=== PATIENT | female | born 1950 | race Caucasian/White ===

== ENCOUNTER 2023-10-05 11:08 | Observation (INO) ==
[2023-10-05] MEDS ORDERED: STAT IV Infusion **Titration per Protocol STA (11:24)
[2023-10-05] MEDS ORDERED: dilTIAZem HCl 5 MG/ML 5 ML VIAL IV STA (11:24)
[2023-10-05] MEDS ORDERED: dilTIAZem HCL 125 MG in DEXTROSE 5% 100 ML IV SCH (11:30)
[2023-10-05] MEDS ORDERED: METOPROLOL TARTRATE 1 MG/ML VIAL IV PRN (11:36)
[2023-10-05] MEDS ORDERED: METOPROLOL TARTRATE 1 MG/ML VIAL IV ONE (11:36)
--- NOTE | 2023-10-05 12:00 | XRay Report ---
SINGLE VIEW CHEST CLINICAL HISTORY: Atypical chest pain. FINDINGS: An AP, portable, upright chest radiograph is obtained. No prior studies are available for c omparison at the time of dictation. The heart is enlarged noting atherosclerotic calcification of the thoracic aorta. The pulmonary vasculature is noncongested. Chronic interstitial thickening is simila r previous. There is mild bibasilar scarring/atelectasis. The lungs and pleural spaces are otherwise clear. No pneumothorax is seen. The skeletal structures are osteopenic. The bony thorax is grossly in tact. IMPRESSION: Cardiomegaly with no active disease in the chest. ACT 112: Negative or not required by law. Electronically signed by: Rishi Kimbrough M.D. 10/05/2023 11:59 AM
[2023-10-05 12:07] LABS: Basophils # (auto) 0.04 K/uL (0.00-0.20); Basophils % (auto) 0.8 %; Eosinophils # (auto) 0.15 K/uL (0.00-0.50); Hematocrit (blood only) 45.2 % (37.0-47.0); Hemoglobin 14.4 g/dl (12.0-16.0); Immature Granulocytes # (auto) 0.02 K/uL (0.01-0.20); Immature Granulocytes % (auto) 0.4 %; Lymphocytes # (auto) 1.06 K/uL (1.20-3.40); Lymphocytes % (auto) 21.4 %; Mean Corpuscular Hgb Conc 31.9 g/dL (32.0-36.0); Mean Corpuscular Volume 97.4 fL (80.0-100.0); Mean Platelet Volume 10.9 fL (9.4-12.4); Monocytes # (auto) 0.48 K/uL (0.11-0.59); Monocytes % (auto) 9.7 %; Neutrophils % (auto) 64.7 %; Platelet Count 234 K/uL (130-400); RDW Coefficient of Variation 14.4 % (11.5-14.5); RDW Standard Deviation 51.5 fL (36.4-46.3); Red Blood Count 4.64 M/uL (4.20-5.40); White Blood Count 4.95 K/ul (4.8-10.8)
[2023-10-05 12:23] LABS: Albumin Globulin Ratio 1.3 (0.9-2); BUN Creatinine Ratio 13.6 (10-20); Bilirubin,Total 0.4 mg/dl (0.2-1.0); Creatinine Clr Calc Pharmacy 80.1 ml/min; Est GFR (Non-African American) 88.9 ml/min; Globulin 3.1 gm/dl (2.5-4.0); Potassium 3.6 mmol/L (3.5-5.1); Total Protein 7.1 gm/dl (6.0-8.3)
[2023-10-05 12:29] LABS: Troponin I High Sensitivity 15.3 pg/ml (0-14)
--- NOTE | 2023-10-05 12:33 | Emergency Department Note ---
Impression & Plan Atrial fibrillation with rapid ventricular response, Elevated troponin ED Provider Note NAME: MACARIO MASTERSON AGE: 72 SEX: F : 1950 ARRIVES VIA: Walk-In INFORMANT: Patient ED PROVIDER(S): Peter Lutz DO CHIEF COMPLAINT: palpitations HPI: Patient is a 72-year-old female who presents the ER with a past medical history of A-fib with RVR and 2 previous ablations. She has not had A-fib for over 3 years. She presents to the ER as her Apple Watch alerted her that her heart was racing. She denies any headache or change in vision. No chest pain or shortness of breath. No nausea vomiting or diarrhea. She notes she did have some trouble sleeping last night. No dysuria urgency or frequency. No other exacerbating or remitting factors. ADDITIONAL HISTORY OBTAINED: Per HPI Chronic Medical/Social Conditions Affecting Care: Per HPI PAST MEDICAL HISTORY:See Below PAST SURGICAL HISTORY:See Below FAMILY HISTORY:See Below SOCIAL HISTORY:See Below HOME MEDICATIONS:See Below ALLERGIES:See Below VITALS:See Below PHYSICAL EXAMINATION: GENERAL: Sitting up in bed, alert, well appearing, well nourished, no distress, non-toxic EYE EXAM: normal conjunctiva. OROPHARYNX: mucous membranes are moist NECK: supple, no nuchal rigidity, no adenopathy, non-tender LUNGS: Clear to auscultation. Normal chest wall mechanics HEART: Tachycardic and irregular regular, S1 normal and S2 normal ABDOMEN: abdomen soft, non-tender, normo-active bowel sounds, no masses, no rebound or guarding. UPPER EXTREMITIES: upper extremities are grossly normal. LOWER EXTREMITIES: No pitting edema. Calves are equal bilateral NEURO EXAM: Normal sensorium, cranial nerves II-XII grossly intact, normal speech, no gross weakness of arms, no gross weakness of legs. MEDICAL DECISION MAKING: Patient is a 72-year-old female who presents ER for above-stated complaint. IV was established blood work was obtained. Labs show no significant leukocytosis or anemia. INR was unremarkable. BMP along LFTs bilirubin was unremarkable as well. Troponin was slightly elevated at 15 I do favor this was rate related as her heart rate was in the 140s. She was given IV Lopressor. Chest x-ray was clean. EKG did show A-fib with RVR and subtle ST depressions with inferior T wave inversions. She was monitored closely. Asymptomatic. She has been taking her blood thinner. She has not missed any doses. She was updated bedside discussed with Alix Handy for further evaluation management treatment. Consults/Care Managements Discussions: Per [facility] Triage Nursing notes reviewed. Limited review of prior medical records performed Vital Signs: reviewed and remarkable for no significant abnormalities Differential diagnosis: Cardiac ischemia, aortic dissection, pulmonary embolism, pneumothorax, pneumonia, pericarditis, myocarditis, esophageal rupture, GERD, cholecystitis, pancreatitis, musculoskeletal, as well as other pathologies. ER treatment provided: See below Diagnostics interpreted by me include EKG and cardiac monitoring as listed below: -Cardiac Monitoring: An order was placed for continuous cardiac monitoring. The monitor shows a rate of 131 with A-fib with RVR rhythm. -ECG: A-fib with RVR Normal axis No PVCs QTc 460 -Laboratory studies:Interpreted by me as stated above in MDM and shown below. Imaging studies: Xrays: As interpreted by me: Portable AP upright 1 view of the chest shows no focal joint CTs show: none Procedures:none Critical Care: None Past Med/Surg History Social History Smoking Status: Never smoker Feels Safe at Home: Yes Results & Data (ED) Vital Signs Vital Signs - 24 hr 10/05/23 11:10 10/05/23 11:16 10/05/23 11:31 Temperature 36.9 C Temperature Source Temporal Artery Scan Pulse Rate 130 H 116 H Pulse Rate from SpO2 Sensor 113 H Respiratory Rate 18 14 Respiratory Effort / Characteristics Non-Labored Spontaneous Respiratory Depth Normal Respiratory Pattern Regular Blood Pressure 155/94 H 136/113 H Blood Pressure Mean 114 120 Blood Pressure Position Sitting Pulse Oximetry 94 98 Oxygen Delivery Method Room Air Room Air Room Air Sepsis Recent Fever Within 48 Hours No Sepsis New/Unexplained Change in Mental Status N/A Sepsis Action Taken by Nursing No Action Required 10/05/23 11:34 10/05/23 11:38 10/05/23 11:38 Temperature Temperature Source Pulse Rate 139 H 105 H Pulse Rate from SpO2 Sensor Respiratory Rate Respiratory Effort / Characteristics Respiratory Depth Respiratory Pattern Blood Pressure 136/113 H Blood Pressure Mean Blood Pressure Position Pulse Oximetry Oxygen Delivery Method Room Air Sepsis Recent Fever Within 48 Hours Sepsis New/Unexplained Change in Mental Status Sepsis Action Taken by Nursing 10/05/23 11:48 10/05/23 12:00 10/05/23 12:16 Temperature Temperature Source Pulse Rate 101 H 109 H 94 H Pulse Rate from SpO2 Sensor 81 107 H 85 Respiratory Rate 18 14 17 Respiratory Effort / Characteristics Respiratory Depth Respiratory Pattern Blood Pressure 131/94 128/86 113/79 Blood Pressure Mean 106 100 90 Blood Pressure Position Pulse Oximetry 100 96 96 Oxygen Delivery Method Sepsis Recent Fever Within 48 Hours Sepsis New/Unexplained Change in Mental Status Sepsis Action Taken by Nursing Laboratory Data 10/05/23 11:26 10/05/23 11:26 Lab Results 10/05/23 Range/Units 11:26 WBC 4.95 (4.8-10.8) K/ul RBC 4.64 (4.20-5.40) M/uL Hgb 14.4 (12.0-16.0) g/dl Hct 45.2 (37.0-47.0) % MCV 97.4 (80.0-100.0) fL MCH 31.0 (25.0-34.0) pg MCHC 31.9 L (32.0-36.0) g/dL RDW Std Deviation 51.5 H (36.4-46.3) fL RDW Coeff of [place] 14.4 (11.5-14.5) % Plt Count 234 (130-400) K/uL MPV 10.9 (9.4-12.4) fL Immature Gran % (Auto) 0.4 % Neut % (Auto) 64.7 % Lymph % (Auto) 21.4 % Mcminn % (Auto) 9.7 % Eos % (Auto) 3.0 % Baso % (Auto) 0.8 % Neut # (Auto) 3.20 (1.40-6.50) K/uL Lymph # (Auto) 1.06 L (1.20-3.40) K/uL Mcminn # (Auto) 0.48 (0.11-0.59) K/uL Eos # (Auto) 0.15 (0.00-0.50) K/uL Baso # (Auto) 0.04 (0.00-0.20) K/uL Immature Gran # (Auto) 0.02 (0.01-0.20) K/uL Sodium 139 (136-145) mmol/L Potassium 3.6 (3.5-5.1) mmol/L Chloride 103 (98-107) mmol/L Carbon Dioxide 31 (21-32) mmol/L Anion Gap 5 (3-11) BUN 9 (6-23) mg/dl Creatinine 0.66 (0.6-1.2) mg/dl Est Cr Clr Drug Dosing 80.1 ml/min Est GFR ( Amer) 103.0 ml/min Est GFR (Non-Af Amer) 88.9 ml/min BUN/Creatinine Ratio 13.6 (10-20) Glucose 87 (70-99(Fasting)) mg/dl Calcium 9.0 (8.6-10.3) mg/dl Total Bilirubin 0.4 (0.2-1.0) mg/dl AST 17 (13-39) U/L ALT 13 (7-52) U/L Alkaline Phosphatase 97 (34-104) U/L Troponin I High Sens 15.3 H (0-14) pg/ml Total Protein 7.1 (6.0-8.3) gm/dl Albumin 4.0 (3.4-5.0) gm/dl Globulin 3.1 (2.5-4.0) gm/dl Albumin/Globulin Ratio 1.3 (0.9-2) Administered Medications Metoprolol Tartrate (Metoprolol Tartrate 1 Mg/Ml Vial) 5 mg IV Q5M PRN PRN Reason: Tachycardia Stop: 11/04/23 11:35 Last Admin: 10/05/23 11:38 Dose: 5 mg Documented By: JAS Discontinued Medications Diltiazem HCl (Diltiazem Hcl 5 Mg/Ml 5 Ml Vial) 10 mg IV NOW STA Stop: 10/05/23 11:25 Last Admin: 10/05/23 11:40 Dose: Not Given Documented By: JAS Diltiazem HCl 125 mg/ Dextrose 125 mls @ 5 mls/hr IV .Q24H [facility]; Protocol Stop: 11/04/23 11:29 Last Admin: 10/05/23 11:40 Dose: Not Given Documented By: JAS Metoprolol Tartrate (Metoprolol Tartrate 1 Mg/Ml Vial) Confirm Administered Dose 5 mg IV .STK-MED ONE Stop: 10/05/23 11:37 Last Admin: 10/05/23 11:39 Dose: Not Given Documented By: JAS Imaging Data Radiologist's Impression: Chest X-Ray 10/05/23 11:16 SINGLE VIEW CHEST CLINICAL HISTORY: Atypical chest pain. FINDINGS: An AP, portable, upright chest radiograph is obtained. No prior studies are available for comparison at the time of dictation. The heart is enlarged noting atherosclerotic calcification of the thoracic aorta. The pulmonary vasculature is noncongested. Chronic interstitial thickening is similar previous. There is mild bibasilar scarring/atelectasis. The lungs and pleural spaces are otherwise clear. No pneumothorax is seen. The skeletal structures are osteopenic. The bony thorax is grossly intact. IMPRESSION: Cardiomegaly with no active disease in the chest. ACT 112: Negative or not required by law. Electronically signed by: Rishi Kimbrough M.D. 10/05/2023 11:59 AM Discharge Plan Visit Data Chief Complaint: Cardiac Assessment Stated Complaint: POSS AFIB ED Provider: Peter Lutz Discharge Problem: Atrial fibrillation with rapid ventricular response, Elevated troponin Forms Stand Alone Forms: [facility] Referrals Referrals: PCP,NO [Primary Care Provider] -
[2023-10-05 12:34] LABS: Partial Thromboplastin Time 29 Seconds (21-31); Prothrombin Time 11.2 Seconds (9.0-12.0)
[2023-10-05] MEDS ORDERED: ACETAMINOPHEN 325 MG TAB PO PRN (13:14)
[2023-10-05] MEDS ORDERED: METOPROLOL SUCC 25MG EXT REL TAB PO SCH (13:30)
[2023-10-05] MEDS: METOPROLOL TARTRATE 25 MG TAB PO SCH ×2 (14:06→19:33)
--- NOTE | 2023-10-05 14:23 | History & Physical Report ---
Date of Service October 05, 2023 Assessment & Plan (1) Atrial fibrillation with rapid ventricular response: Plan: Admit to telemetry Patient presenting from home for evaluation of atrial fibrillation. States that around 8 AM, her Apple Watch alerted her that she was in atrial fibrillation. She was asymptomatic. Patient reports an incidental finding of atrial fibrillation in 2019 as part of a preop workup for shoulder surgery. Patient states that she underwent cardioversion twice that was unsuccessful, ultimately leading to ablation in February 2020. In October 2020, patient underwent an additional ablation. Patient reports no known recurrences of atrial fibrillation since that time. In the ED, patient found to be in atrial fibrillation with rates in the 130s. She received metoprolol 5 mg IV with improvement in heart rate. Patient reports a intolerance to diltiazem, causing profound bradycardia in the past. Currently not on any rhythm or rate controlling medications. No signs of infection, electrolytes acceptable, TSH pending Start metoprolol tartrate 12.5 mg q6h, continue home Xarelto Echo Cardiology consult, case discussed with Dr. Pepper. (2) History of DVT (deep vein thrombosis): Plan: Continue Xarelto (3) Postsurgical hypothyroidism: Plan: Continue home dose levothyroxine Check TSH DVT PROPHYLAXIS On Xarelto Patient seen in collaboration with Dr. Arteaga. I spent a total of 75 minutes coordinating, documenting, and providing care for this patient excluding time spent in the performance of separately billed services. This included personally reviewing all current laboratories and imaging studies, medication reconciliation, outpatient chart review, and discussion with specialists. Admission and Anticipated Discharge Date Admission Date: October 05, 2023 History of Present Illness Chief Complaint: Atrial fibrillation Primary Care Provider: NO PCP 72-year-old female with PMH paroxysmal atrial fibrillation s/p cardioversion and ablation, history of DVT anticoagulated on Xarelto, partial thyroidectomy and postsurgical hypothyroidism, and other problems listed below who presents to the ED for evaluation of atrial fibrillation. History is obtained from the patient. Patient recently moved to the area from [place]. She has not established with a PCP or cardiology. Patient reports an incidental finding of atrial fibrillation in 2018 as part of a preop workup for shoulder surgery. Patient states that she underwent cardioversion twice that was unsuccessful, ultimately leading to ablation in February 2020. In October 2020, patient underwent an additional ablation. Patient reports no known recurrences of atrial fibrillation since that time. This morning around 8 AM, patient reports that her Apple Watch alerted her that she was in atrial fibrillation. She then presented to the ED for further evaluation. Patient reports she was asymptomatic. She denies chest pain and palpitations. No shortness of breath, lightheadedness, dizziness, diaphoresis, syncopal events. Reports she otherwise has been feeling well recently. Denies any other recent illnesses, fevers, chills. No abdominal pain, nausea, vomiting, diarrhea. She denies urinary symptoms. Of note, patient is not currently on any rhythm or rate controlling medications for atrial fibrillation. In the ED, patient was found to be in atrial fibrillation with RVR with rates in the 130s. She received metoprolol 5 mg IV with improvement in heart rate. Labs are unremarkable. Home Medications Medication Instructions Recorded Confirmed Type Biactiv 3 tabs PO DAILY 10/05/23 10/05/23 History cetirizine 10 mg capsule (Zyrtec) 10 mg PO DAILY 10/05/23 10/05/23 History cholecalciferol (vitamin D3) 25 25 mcg PO DAILY 10/05/23 10/05/23 History mcg (1,000 unit) capsule glucosamine sulf dipot 1 cap PO DAILY 10/05/23 10/05/23 History chlr,msm,chond 550 mg-C 30 mg-carlos 1 mg capsule (Glucosamine Chondroitin) krill oil 1,000 mg-om3 130 mg-dha 1 cap PO DAILY 10/05/23 10/05/23 History 40 mg-epa 80 zv-og4-crw-astax cap (Krill Oil (Washta 3 and 6)) levothyroxine 88 mcg tablet 88 mcg PO DAILY 10/05/23 10/05/23 History rivaroxaban 20 mg tablet (Xarelto) 20 mg PO DAILY 10/05/23 10/05/23 History trazodone 50 mg tablet 50 mg PO HS 10/05/23 10/05/23 History vitamins A,C,T-bpvt-hsvbbh 2,148 1 tab PO DAILY 10/05/23 10/05/23 History mcg-113 mg-45 mg-17.4 mg tablet (PreserVision AREDS) Past Med/Surg History Medical History History of DVT (deep vein thrombosis) Postsurgical hypothyroidism Paroxysmal atrial fibrillation Surgical History History of rotator cuff surgery History of partial thyroidectomy Family History Father Atrial fibrillation Mother Atrial fibrillation Social History Smoking Status: Never smoker Hx Alcohol Use: Yes Alcohol type: wine Hx Substance Use: No Communication Ability: Effective Beliefs That Will Affect Care: None Current Living Situation: Spouse Feels Safe at Home: Yes Safety Concerns: Feels Safe At This Time Physical Exam Constitutional: WD/WN, vitals as above no acute distress Eyes: PERRL, conjunctivae normal, anicteric sclerae ENMT: external ear and nose normal, oropharynx normal Respiratory: normal respiratory effort, lungs clear to auscultation Cardiovascular: Rate/Rhythm: regular rate and + irregularly irregular Vessels: normal peripheral pulses Extremities: no edema Gastrointestinal (Abdomen): normal bowel sounds, soft, nontender, no hepatosplenomegaly Musculoskeletal: no cyanosis or clubbing, extremities motor strength 5/5 Skin: no rashes, warm and dry Neurologic: PERRL, EOMI, accommodation nl, no face palsy, no dysarthria Psychiatric: A+Ox3, euthymic affect Results & Data Results & Data Vital Signs (Past 12 Hours) Vital Signs Temp Pulse Resp BP Pulse Ox O2 Del Method 10/05/23 13:24 86 119/89 10/05/23 13:14 Room Air 10/05/23 12:16 94 H 17 113/79 96 10/05/23 12:00 109 H 14 128/86 96 10/05/23 11:48 101 H 18 131/94 100 10/05/23 11:38 105 H 136/113 H 10/05/23 11:38 Room Air 10/05/23 11:34 139 H 10/05/23 11:31 116 H 14 136/113 H 98 Room Air 10/05/23 11:16 Room Air 10/05/23 11:10 36.9 C 130 H 18 155/94 H 94 Room Air Laboratory Results Short CBC 10/05/23 Range/Units 11:26 WBC 4.95 (4.8-10.8) K/ul Hgb 14.4 (12.0-16.0) g/dl Hct 45.2 (37.0-47.0) % Plt Count 234 (130-400) K/uL BMP 10/05/23 11:26 Sodium 139 Potassium 3.6 Chloride 103 Carbon Dioxide 31 BUN 9 Creatinine 0.66 Glucose 87 Calcium 9.0 Liver Function 10/05/23 Range/Units 11:26 Total Bilirubin 0.4 (0.2-1.0) mg/dl AST 17 (13-39) U/L ALT 13 (7-52) U/L Alkaline Phosphatase 97 (34-104) U/L Albumin 4.0 (3.4-5.0) gm/dl Diagnostic Findings Chest X-Ray 10/05/23 11:16 SINGLE VIEW CHEST CLINICAL HISTORY: Atypical chest pain. FINDINGS: An AP, portable, upright chest radiograph is obtained. No prior studies are available for comparison at the time of dictation. The heart is enlarged noting atherosclerotic calcification of the thoracic aorta. The pulmonary vasculature is noncongested. Chronic interstitial thickening is similar previous. There is mild bibasilar scarring/atelectasis. The lungs and pleural spaces are otherwise clear. No pneumothorax is seen. The skeletal structures are osteopenic. The bony thorax is grossly intact. IMPRESSION: Cardiomegaly with no active disease in the chest. ACT 112: Negative or not required by law. Electronically signed by: Rishi Kimbrough M.D. 10/05/2023 11:59 AM Code Status & VTE Plan VTE Prophylaxis Plan VTE Prophylaxis will be ordered: No Supervising Physician Co-Signing Physician Notes Reviewed [employer] INSPECTOR notes, patient is being followed for cardiac care in [place] and recently moved here. She is scheduled to have a cardiology for follow-up in October. Will get a cardiology follow-up while in hospital. Reviewed [id number] score Will get a TSH study.
[2023-10-05 15:13] LABS: Thyroid Stimulating Hormone 0.971 uIu/ml (0.300-4.500)
--- NOTE | 2023-10-05 15:16 | Electrocardiogram Report ---
Test Reason : Blood Pressure : / mmHG Vent. Rate : 129 BPM Atrial Rate : 000 BPM P-R Int : 000 ms QRS Dur : 078 ms QT Int : 314 ms P-R-T Axes : 000 110 -29 degrees QTc Int : 460 ms Atrial fibrillation with rapid ventricular response Right axis deviation Abnormal ECG No previous ECGs available Confirmed by Dwight Mendez ([id number]) on 10/05/2023 3:15:53 PM Referred By: REFERRED SELF Confirmed By:Dwight Mendez
--- NOTE | 2023-10-05 15:31 | Cardiology Consultation ---
Date of Consultation October 05, 2023 Assessment & Plan (1) Atrial fibrillation with rapid ventricular response: (2) Elevated troponin: (3) History of DVT (deep vein thrombosis): Plan Assessment: 72 year old female with history of Atrial fibrillation s/p multiple cardioversions as well as 2 subsequent ablations, last dating back to 2020, presents with asymptomatic atrial fibrillation with RVR. Plan: 1. Atrial fibrillation with RVR -Currently A-fib on telemetry rates 90-109, asympotmatic. -No recent acute infectious process. -No concerns of dehydration or poor oral intake -Electrolytes normal. -Troponin with slight elevation, in the absence of acute ischemic EKG changes, likely tachycardia driven -check TSH given her thyroid history -Obtain echocardiogram to assess overall structure, function and for any wall motion abnormalities. -Reports poor tolerance of Cardizem in the past, continue with Metoprolol Tartrate 12.5mg PO Q6H as per current regimen. -Continue Xarelto as per her home regimen. Reports no missed doses. - Will make NPO after midnight for consideration of possible DCCV tomorrow. Will discuss with Dr. Pepper 2. Elevated Troponin -slight elevation, monitor for peak. -EKG with no acute ischemic changes, likely tachycardia mediated. -Obtain echocardiogram. 3. History of DVT -Patient reports that this occurred around the time of her . She has opted to stay on her Xarelto, and has not missed any doses. Case has been discussed with Dr. Pepper. Further recommendations regarding plan of care as per his assessment. I spent a total of 30 minutes on the date of service in preparation, delivery, documentation of the care provided to the patient excluding any time spent in the performance of separately billed services. FAVIO [facility] Cardiology [facility] Supervising Physician Co-Signing Physician Notes Attending attestation: I have reviewed the advanced practitioner's documentation on the date of service referenced in note, and I agree with, and take responsibility for the plan of care. Subjective: Patient assessed by the undersigned in room C6 in the emergency department at 5 PM. She notes feeling comfortable. Telemetry reveals rate controlled atrial fibrillation in the 70s to 80s during my assessment. She notes no subjective palpitation symptoms, denies chest pain, shortness of breath, or lightheadedness or dizziness. She wears her Apple Watch daily, but today it gave her an alert that she was in atrial fibrillation prompting presentation to the emergency department. 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 She describes having had a past negative stress test at around the time of her previous atrial fibrillation ablation. She recalls being on metoprolol in the past and had been on a course of amiodarone after each of her ablations and she believes that she was weaned off of amiodarone 3 months after her most recent ablation. Exam: Cardiovascular regular rhythm, no murmurs, no edema Data: EKG performed 10/05/2023 at 11:21 AM and reviewed independently reveals atrial fibrillation with rapid ventricular response 129 bpm, T wave inversion noted in leads III and aVF. No previous tracing available for comparison Echocardiogram performed today and reviewed independently: Normal biventricular wall motion and systolic function, LVEF in the range of 55-60%. Mild MR. Mild TR. Mild left atrial lodgment. No evidence of pulmonary hypertension Mild concentric left ventricular hypertrophy Impression/ Plan: Recurrent atrial fibrillation Chronically anticoagulated Xarelto, typically takes Xarelto with her evening meal, last dose was last evening at 6 PM, will keep her on her usual schedule. Agree with plan to start metoprolol tartrate 12.6 mg p.o. every 6 hours. Future considerations include utilizing amiodarone for chemical cardioversion however I think it is reasonable to start with metoprolol as her rates are already well- controlled. She had lunch and I think it is okay for her to have dinner. Will keep her n.p.o. after midnight in case need arises for cardioversion tomorrow. I spent a total of 20 minutes coordinating, documenting, and providing care for this patient excluding time spent in the performance of separately billed services or time spent by another provider. Gustavo Pepper DO History of Present Illness Reason for Consultation: Atrial fibrillation with RVR Requesting Physician: Meaghan Shaw Attending Physician: Felton Arteaga MD History of Present Illness HPI: patient is a very plesant 72 year-old female with PMHx significant for Paroxysmal Atrial fibrillation (7 prior cardioversions, 2 Afib ablations 2019 and 2020), hx of DVT after , partial thyroidectomy, and post surgical hypothyroidism that presented to the ED this morning with concerns that she was in A-fib. patient states that she has been feeling her usual state of health. 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 She has had no recent cold or flu like symtoms. No fevers, chills, No N/V/D and no decrease in appetite or oral intake. She was up doing her normal ADLs when her apple watch alarmed telling her that she was in A-fib prompting her to present for evaluation. She has remained asymptomatic. Patient has not seen a psych tech since her move to [place], but is scheduled to see Dr. Washburn to establish care. She states she has had no episodes of A-fib that she is aware of since her Ablation in 2020. patient last saw her psych tech in fall (in [place]) with a "good report". She remains on Xarelto with no missed doses. EKG on admission A-fib with RVR rate 129 bpm. Denies chest pain, pressure, palpitations, shortness of breath, PND, pre- syncope, syncope or edema Home Medications Medication Instructions Recorded Confirmed Type Biactiv 3 tabs PO DAILY 10/05/23 10/05/23 History cetirizine 10 mg capsule (Zyrtec) 10 mg PO DAILY 10/05/23 10/05/23 History cholecalciferol (vitamin D3) 25 25 mcg PO DAILY 10/05/23 10/05/23 History mcg (1,000 unit) capsule glucosamine sulf dipot 1 cap PO DAILY 10/05/23 10/05/23 History chlr,msm,chond 550 mg-C 30 mg-carlos 1 mg capsule (Glucosamine Chondroitin) krill oil 1,000 mg-om3 130 mg-dha 1 cap PO DAILY 10/05/23 10/05/23 History 40 mg-epa 80 nb-vz5-zvg-astax cap (Krill Oil (Redford 3 and 6)) levothyroxine 88 mcg tablet 88 mcg PO DAILY 10/05/23 10/05/23 History rivaroxaban 20 mg tablet (Xarelto) 20 mg PO DAILY 10/05/23 10/05/23 History vitamins A,C,K-wqaf-yxgtea 2,148 1 tab PO DAILY 10/05/23 10/05/23 History mcg-113 mg-45 mg-17.4 mg tablet (PreserVision AREDS) Patient History Medical History History of DVT (deep vein thrombosis) Postsurgical hypothyroidism Paroxysmal atrial fibrillation Surgical History History of rotator cuff surgery History of partial thyroidectomy Family History Father Atrial fibrillation Mother Atrial fibrillation Social History Smoking Status: Never smoker Hx Alcohol Use: Yes Alcohol type: wine Hx Substance Use: No Communication Ability: Effective Beliefs That Will Affect Care: None Current Living Situation: Spouse Feels Safe at Home: Yes Safety Concerns: Feels Safe At This Time Review of Systems Review of Systems: All systems reviewed & are unremarkable except as noted in HPI & below Physical Exam Constitutional: WD/WN, vitals as above Neck: normal visual inspection and trachea midline Respiratory: normal respiratory effort, lungs clear to auscultation Cardiovascular: Rate/Rhythm: + irregularly irregular Heart Sounds: normal S1 and normal S2; no murmur Vessels: dorsalis pedis pulses present; no JVD Extremities: no edema Skin: no rashes, warm and dry Psychiatric: A+Ox3, euthymic affect Results & Data Vital Signs (Past 12 Hours) Vital Signs Temp Pulse Resp BP Pulse Ox O2 Del Method 10/05/23 14:09 Room Air 10/05/23 13:24 86 119/89 10/05/23 13:14 Room Air 10/05/23 12:16 94 H 17 113/79 96 10/05/23 12:00 109 H 14 128/86 96 10/05/23 11:48 101 H 18 131/94 100 10/05/23 11:38 105 H 136/113 H 10/05/23 11:38 Room Air 10/05/23 11:34 139 H 10/05/23 11:31 116 H 14 136/113 H 98 Room Air 10/05/23 11:16 Room Air 10/05/23 11:10 36.9 C 130 H 18 155/94 H 94 Room Air Laboratory Results Cardiac Enzymes 10/05/23 Range/Units 11:26 AST 17 (13-39) U/L Troponin I High Sens 15.3 H (0-14) pg/ml Coagulation 10/05/23 Range/Units 11:26 PT 11.2 (9.0-12.0) Seconds APTT 29 (21-31) Seconds CBC 10/05/23 Range/Units 11:26 WBC 4.95 (4.8-10.8) K/ul RBC 4.64 (4.20-5.40) M/uL Hgb 14.4 (12.0-16.0) g/dl Hct 45.2 (37.0-47.0) % Plt Count 234 (130-400) K/uL Neut # (Auto) 3.20 (1.40-6.50) K/uL Lymph # (Auto) 1.06 L (1.20-3.40) K/uL [place] # (Auto) 0.48 (0.11-0.59) K/uL Eos # (Auto) 0.15 (0.00-0.50) K/uL Baso # (Auto) 0.04 (0.00-0.20) K/uL Comprehensive Metabolic Panel 10/05/23 Range/Units 11:26 Sodium 139 (136-145) mmol/L Potassium 3.6 (3.5-5.1) mmol/L Chloride 103 (98-107) mmol/L Carbon Dioxide 31 (21-32) mmol/L BUN 9 (6-23) mg/dl Creatinine 0.66 (0.6-1.2) mg/dl Glucose 87 (70-99(Fasting)) mg/dl Calcium 9.0 (8.6-10.3) mg/dl AST 17 (13-39) U/L ALT 13 (7-52) U/L Alkaline Phosphatase 97 (34-104) U/L Total Protein 7.1 (6.0-8.3) gm/dl Albumin 4.0 (3.4-5.0) gm/dl Intake and Output 10/05/23 10/05/23 10/05/23 06:59 14:59 22:59 Other: Weight 76.7 kg Weight Measurement Method Chair Scale Patient Weight 10/06/23 06:59 Weight 76.7 kg Diagnostic Findings EKG today A-fib with RVR Rate 129bpm
[2023-10-05] MEDS ORDERED: RIVAROXABAN 20 MG TAB PO SCH (17:30)
[2023-10-05] MEDS ORDERED: traZODone HCL 50 MG TAB PO SCH (21:00)
[2023-10-06] MEDS ORDERED: Patient's ALLERGY Info needs ENTERED STA (02:44)
[2023-10-06] MEDS ORDERED: SODIUM CHLORIDE 0.9% 500 ML IV SCH (02:45)
[2023-10-06] MEDS: METOPROLOL TARTRATE 25 MG TAB PO SCH ×2 (03:10→08:12)
[2023-10-06] MEDS ORDERED: LEVOTHYROXINE SODIUM 88 MCG TABLET PO SCH (06:30)
[2023-10-06 06:49] LABS: Hematocrit (blood only) 39.7 % (37.0-47.0); Hemoglobin 13.3 g/dl (12.0-16.0); Mean Corpuscular Hgb Conc 33.5 g/dL (32.0-36.0); Mean Corpuscular Volume 95.4 fL (80.0-100.0); Mean Platelet Volume 11.1 fL (9.4-12.4); Platelet Count 213 K/uL (130-400); RDW Coefficient of Variation 14.5 % (11.5-14.5); RDW Standard Deviation 50.7 fL (36.4-46.3); Red Blood Count 4.16 M/uL (4.20-5.40); White Blood Count 4.52 K/ul (4.8-10.8)
[2023-10-06 07:11] LABS: BUN Creatinine Ratio 20.9 (10-20); Calcium 8.7 mg/dl (8.6-10.3); Creatinine Clr Calc Pharmacy 78.9 ml/min; Est GFR (African American) 102.5 ml/min; Est GFR (Non-African American) 88.4 ml/min; Potassium 4.2 mmol/L (3.5-5.1)
[2023-10-06] MEDS ORDERED: RIVAROXABAN 20 MG TAB PO SCH (09:00)
[2023-10-06] MEDS ORDERED: CETIRIZINE HCL 10 MG TABLET PO SCH (09:00)
[2023-10-06] MEDS ORDERED: CHOLECALCIFEROL 25 MCG (1000 UNITS) TAB PO SCH (09:00)
--- NOTE | 2023-10-06 09:59 | Cardiology Progress Note ---
Date of Service October 06, 2023 Assessment & Plan (1) Atrial fibrillation with rapid ventricular response: (2) Elevated troponin: (3) History of DVT (deep vein thrombosis): Plan Assessment: 72 year old female with history of Atrial fibrillation s/p multiple cardioversions as well as 2 subsequent ablations, last dating back to 2020, presents with asymptomatic atrial fibrillation with RVR. Plan: Patient presents with recurrent atrial fibrillation. She is noted to be min imally symptomatic to asymptomatic, and having detected atrial fibrillation yesterday in the morning when she was wearing her Apple Watch which she typically wears daily but not when she sleeps. She has a history of atrial fibrillation in the past for which she has had 7 prior direct-current cardioversions per her recollection and has had ablation therapy x 2. She has been on uninterrupted anticoagulation with Xarelto 20 mg daily and she received her dose with her evening meal yesterday at 1800 as per her usual routine. Informed consent for direct-current cardioversion was obtained and patient elects to proceed. Admission and Anticipated Discharge Date Admission Date: October 05, 2023 Subjective Patient seen in follow-up of atrial fibrillation. Telemetry reveals ongoing atrial fibrillation, ventricular rate 114 bpm while resting in bed at present. Telemetry reveals atrial fibrillation that persisted last night. EKG this morning reveals atrial fibrillation at 84 bpm with nonspecific repolarization abnormalities and 1 noted PVC. Physical Exam Constitutional: WD/WN, vitals as above Neck: normal visual inspection and trachea midline Respiratory: normal respiratory effort, lungs clear to auscultation Cardiovascular: Rate/Rhythm: + irregularly irregular Heart Sounds: normal S1 and normal S2; no murmur Vessels: dorsalis pedis pulses present; no JVD Extremities: no edema Skin: no rashes, warm and dry Psychiatric: A+Ox3, euthymic affect Results & Data Vital Signs (Past 12 Hours) Vital Signs Temp Pulse Pulse Resp BP BP Pulse Ox 10/06/23 09:55 99 H 10/06/23 07:33 36.5 C 126 H 18 95/65 L 96 10/06/23 03:45 100/66 10/06/23 02:31 36.4 C L 103 H 15 86/55 L 94 10/05/23 23:01 36.4 C L 79 20 90/58 L 93 10/05/23 22:17 36.5 C 102 H 16 127/88 94 O2 Del Method 10/06/23 09:55 10/06/23 07:33 Room Air 10/06/23 03:45 10/06/23 02:31 Room Air 10/05/23 23:01 Room Air 10/05/23 22:17 Room Air Laboratory Results Cardiac Enzymes 10/05/23 10/05/23 10/06/23 Range/Units 11:26 17:40 00:39 AST 17 (13-39) U/L Troponin I High Sens 15.3 H 12.0 10.7 (0-14) pg/ml Coagulation 10/05/23 Range/Units 11:26 PT 11.2 (9.0-12.0) Seconds APTT 29 (21-31) Seconds CBC 10/05/23 10/06/23 Range/Units 11:26 05:46 WBC 4.95 4.52 L (4.8-10.8) K/ul RBC 4.64 4.16 L (4.20-5.40) M/uL Hgb 14.4 13.3 (12.0-16.0) g/dl Hct 45.2 39.7 (37.0-47.0) % Plt Count 234 213 (130-400) K/uL Neut # (Auto) 3.20 (1.40-6.50) K/uL Lymph # (Auto) 1.06 L (1.20-3.40) K/uL [place] # (Auto) 0.48 (0.11-0.59) K/uL Eos # (Auto) 0.15 (0.00-0.50) K/uL Baso # (Auto) 0.04 (0.00-0.20) K/uL Comprehensive Metabolic Panel 10/05/23 10/06/23 Range/Units 11:26 05:46 Sodium 139 141 (136-145) mmol/L Potassium 3.6 4.2 (3.5-5.1) mmol/L Chloride 103 109 H (98-107) mmol/L Carbon Dioxide 31 28 (21-32) mmol/L BUN 9 14 (6-23) mg/dl Creatinine 0.66 0.67 (0.6-1.2) mg/dl Glucose 87 92 (70-99(Fasting)) mg/dl Calcium 9.0 8.7 (8.6-10.3) mg/dl AST 17 (13-39) U/L ALT 13 (7-52) U/L Alkaline Phosphatase 97 (34-104) U/L Total Protein 7.1 (6.0-8.3) gm/dl Albumin 4.0 (3.4-5.0) gm/dl Intake and Output 10/05/23 10/06/23 10/06/23 22:59 06:59 14:59 Intake Total 120 / 620 500 / 620 Balance 120 / 620 500 / 620 Intake: IV 500 / 500 Sodium Chloride 0.9% 500 ml @ 500 / 500 500 mls/hr IV .Q1H [facility] Rx#: [id number] Oral 120 / 120 Other: Other Intake Source Patient is NPO # Unmeasured Voids 1 Weight 76.7 kg Weight Measurement Method Built in [facility]
--- NOTE | 2023-10-06 10:09 | Anesthesiology Consultation ---
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 Room w/Anesthesia - Gustavo Pepper DO Height/Weight Height: 5 ft 5 in Weight: 76.7 kg Allergies Allergy/AdvReac Type Severity Reaction Status Date / Time acetaminophen [From Percocet] Allergy Unknown Verified 10/06/23 02:53 oxycodone [From Percocet] Allergy Unknown Verified 10/06/23 02:53 diltiazem [From Cardizem] AdvReac Hypotension Verified 10/06/23 02:53 Medications Home Medications Medication Instructions Recorded Confirmed Last Taken Biactiv 3 tabs PO DAILY 10/05/23 10/05/23 Unknown cetirizine 10 mg capsule (Zyrtec) 10 mg PO DAILY 10/05/23 10/05/23 Unknown cholecalciferol (vitamin D3) 25 25 mcg PO DAILY 10/05/23 10/05/23 Unknown mcg (1,000 unit) capsule glucosamine sulf dipot 1 cap PO DAILY 10/05/23 10/05/23 Unknown chlr,msm,chond 550 mg-C 30 mg-carlos 1 mg capsule (Glucosamine Chondroitin) krill oil 1,000 mg-om3 130 mg-dha 1 cap PO DAILY 10/05/23 10/05/23 Unknown 40 mg-epa 80 gv-dx5-ydm-astax cap (Krill Oil (Erin 3 and 6)) levothyroxine 88 mcg tablet 88 mcg PO DAILY 10/05/23 10/05/23 Unknown rivaroxaban 20 mg tablet (Xarelto) 20 mg PO DAILY 10/05/23 10/05/23 Unknown trazodone 50 mg tablet 50 mg PO HS 10/05/23 10/05/23 10/04/23 50 vitamins A,C,G-keom-tdgxxa 2,148 1 tab PO DAILY 10/05/23 10/05/23 Unknown mcg-113 mg-45 mg-17.4 mg tablet (PreserVision AREDS) Active Medications Generic Name Dose Route Start Last Admin Trade Name Freq PRN Reason Stop Dose Admin Cetirizine HCl 10 mg 10/06/23 09:00 10/06/23 08:16 Cetirizine Hcl 10 Mg Tablet PO 11/05/23 08:59 10 mg DAILY DUKE Administration Levothyroxine Sodium 88 mcg 10/06/23 06:30 10/06/23 05:48 Levothyroxine Sodium 88 Mcg Tablet PO 11/05/23 06:29 88 mcg DAILYBB DUKE Administration Metoprolol Tartrate 12.5 mg 10/05/23 14:00 10/06/23 08:12 Metoprolol Tartrate 25 Mg Tab PO 11/04/23 13:59 12.5 mg Q6H DUKE Administration Rivaroxaban 20 mg 10/05/23 17:30 10/05/23 18:05 Rivaroxaban 20 Mg Tab PO 11/04/23 17:29 20 mg DAILY@1700 DUKE Administration Trazodone HCl 50 mg 10/05/23 21:00 10/05/23 22:23 Trazodone Hcl 50 Mg Tab PO 11/04/23 20:59 50 mg HS DUKE Administration Vitamin D 1,000 units 10/06/23 09:00 10/06/23 08:16 Cholecalciferol 1,000 Units 25 Mcg Tab PO 11/05/23 08:59 1,000 units DAILY DUKE Administration Past Medical History Medical History History of DVT (deep vein thrombosis) Postsurgical hypothyroidism Paroxysmal atrial fibrillation Past Family History Family History Father Atrial fibrillation Mother Atrial fibrillation Past Surgical History Surgical History History of rotator cuff surgery History of partial thyroidectomy Social History Smoking Status: Never smoker Hx Alcohol Use: Yes Alcohol type: wine alcohol intake frequency: holidays/special occasions only Hx Substance Use: No substance use type: does not use Physical Exam Vital Signs Last Vital Signs Temp 97.7 F 10/06/23 07:33 Pulse 110 H 10/06/23 10:04 Resp 14 10/06/23 10:04 BP 134/83 10/06/23 10:04 Pulse Ox 98 10/06/23 10:04 O2 Del Method Room Air 10/06/23 10:04 Testing Laboratory Results 10/06/23 05:46 10/06/23 05:46 PT 11.2 Seconds (9.0-12.0) 10/05/23 11:26 INR 1.0 (0.9-1.1) 10/05/23 11:26 APTT 29 Seconds (21-31) 10/05/23 11:26
[2023-10-06] MEDS ORDERED: LIDOCAINE 2% 2 ML VIAL/AMP(20MG/ML) INFIL ONE (10:16)
[2023-10-06] MEDS ORDERED: PROPOFOL IV EMULSION 10 MG/ML 20 ML VIAL IV ONE (10:16)
--- NOTE | 2023-10-06 10:33 | Post Operative Brief Note ---
Cardiology Brief Post Op Date of Surgery October 06, 2023 Pre & Post Diagnosis Operation Date: 10/06/23 10:00 Procedure Preprocedure diagnosis: Persistent atrial fibrillation Post procedure diagnosis successful conversion to sinus rhythm Procedure: After informed consent was obtained a timeout was performed the patient was sedated with the assistance of the anesthesia service. She received the single dose of 150 J of biphasic energy with successful conversion to sinus rhythm. Plan: Continue Xarelto 20 mg daily with evening meal, 5 PM or 6 PM as per her usual routine. Transition to metoprolol succinate 25 mg daily, first dose this morning post cardioversion. If patient feels well, anticipate discharge after lunch today. Outpatient cardiology follow-up with [facility] cardiology. Park Superintendent Gustavo Pepper DO Specialist Field Engineer none Estimated Blood Loss 0 Findings Consistent with Post-Op Diagnosis Anesthesia Type MAC Complications none
--- NOTE | 2023-10-06 10:34 | Anesthesiology Progress Note ---
Date of Service October 06, 2023 Anesthesia Post Procedure Vital Signs Vital Signs: Temp Pulse Pulse Resp BP BP BP 10/06/23 10:04 110 H 14 134/83 10/06/23 09:55 99 H 10/06/23 07:33 97.7 F 126 H 18 95/65 L 10/06/23 03:45 100/66 10/06/23 02:31 97.5 F L 103 H 15 86/55 L 10/05/23 23:01 97.5 F L 79 20 90/58 L 10/05/23 22:17 97.7 F 102 H 16 127/88 10/05/23 21:32 107 H 10/05/23 19:17 87 14 129/71 10/05/23 14:09 10/05/23 13:24 86 119/89 10/05/23 13:14 10/05/23 12:16 94 H 17 113/79 10/05/23 12:00 109 H 14 128/86 10/05/23 11:48 101 H 18 131/94 10/05/23 11:38 105 H 136/113 H 10/05/23 11:38 10/05/23 11:34 139 H 10/05/23 11:31 116 H 14 136/113 H 10/05/23 11:16 10/05/23 11:10 98.4 F 130 H 18 155/94 H Pulse Ox O2 Del Method 10/06/23 10:04 98 Room Air 10/06/23 09:55 10/06/23 07:33 96 Room Air 10/06/23 03:45 10/06/23 02:31 94 Room Air 10/05/23 23:01 93 Room Air 10/05/23 22:17 94 Room Air 10/05/23 21:32 10/05/23 19:17 98 Room Air 10/05/23 14:09 Room Air 10/05/23 13:24 10/05/23 13:14 Room Air 10/05/23 12:16 96 10/05/23 12:00 96 10/05/23 11:48 100 10/05/23 11:38 10/05/23 11:38 Room Air 10/05/23 11:34 10/05/23 11:31 98 Room Air 10/05/23 11:16 Room Air 10/05/23 11:10 94 Room Air Transfer of Care Handoff Completed per policy Notes Mental Status: alert / awake / arousable and participated in evaluation Patient Amnestic to Procedure: Yes Nausea / Vomiting: adequately controlled Pain: adequately controlled Airway Patency, RR, SpO2: stable & adequate BP & HR: stable & adequate Hydration State: stable & adequate Anesthetic Complications: no major complications apparent and Pt Satisfied with anesthetic care
[2023-10-06] MEDS ORDERED: METOPROLOL SUCC 25MG EXT REL TAB PO SCH (10:45)
[2023-10-06 11:34] VITALS: TEMP 97.5
--- NOTE | 2023-10-06 11:49 | Electrocardiogram Report ---
Test Reason : Blood Pressure : / mmHG Vent. Rate : 084 BPM Atrial Rate : 053 BPM P-R Int : 000 ms QRS Dur : 076 ms QT Int : 366 ms P-R-T Axes : 000 042 012 degrees QTc Int : 432 ms Atrial fibrillation with premature ventricular or aberrantly conducted complexes Low voltage QRS Nonspecific T wave abnormality Abnormal ECG When compared with ECG of 05-OCT-2023 11:21, Vent. rate has decreased BY 45 BPM QRS axis Shifted left Nonspecific T wave abnormality has replaced inverted T waves in Inferior leads Nonspecific T wave abnormality no longer evident in Lateral leads Confirmed by Dwight Mendez ([id number]) on 10/06/2023 11:48:47 AM Referred By: REFERRED SELF Confirmed By:Dwight Mendez
[2023-10-06 11:55] VITALS: RESP 20; O2SAT 100
--- NOTE | 2023-10-06 11:56 | Electrocardiogram Report ---
Test Reason : Blood Pressure : / mmHG Vent. Rate : 066 BPM Atrial Rate : 066 BPM P-R Int : 198 ms QRS Dur : 076 ms QT Int : 410 ms P-R-T Axes : 052 045 040 degrees QTc Int : 429 ms Sinus rhythm with Premature atrial complexes Otherwise normal ECG When compared with ECG of 06-OCT-2023 05:51, (unconfirmed) Sinus rhythm has replaced Atrial fibrillation Confirmed by Dwight Mendez ([id number]) on 10/06/2023 11:55:58 AM Referred By: REFERRED SELF Confirmed By:Dwight Mendez
--- NOTE | 2023-10-06 13:04 | Hospitalist Progress Note ---
Date of Service October 06, 2023 Assessment & Plan (1) Atrial fibrillation with rapid ventricular response: Plan: Patient presenting from home for evaluation of atrial fibrillation. States that around 8 AM, her Apple Watch alerted her that she was in atrial fibrillation. She was asymptomatic. Patient reports an incidental finding of atrial fibrillation in 2018 as part of a preop workup for shoulder surgery. Patient states that she underwent cardioversion twice that was unsuccessful, ultimately leading to ablation in February 2020. In October 2020, patient underwent an additional ablation. Patient reports no known recurrences of atrial fibrillation since that time. In the ED, patient found to be in atrial fibrillation with rates in the 130s. She received metoprolol 5 mg IV with improvement in heart rate. Patient reports a intolerance to diltiazem, causing profound bradycardia in the past. Currently not on any rhythm or rate controlling medications. No signs of infection, electrolytes acceptable, TSH pending Start metoprolol tartrate 12.5 mg q6h, continue home Xarelto Echo echo of the heart showedmild concentric LVH, EF 55 to 60%, LV wall motion is normal, left atrium is mildly dilated, there is mild MR and mild TR and Doppler findings do not suggest pulmonary hypertension Appreciate cardiology input and recommendation Status post cardioversion with reversion to sinus rhythm Started on beta-anant and will be continued as advised She will be discharged home this afternoon (2) History of DVT (deep vein thrombosis): Plan: Continue Xarelto (3) Postsurgical hypothyroidism: Plan: Continue home dose levothyroxine Check TSH DVT PROPHYLAXIS On Xarelto . Admission and Anticipated Discharge Date Admission Date: October 05, 2023 Subjective 10/06/2023 Patient was seen and examined in telemetry unit in presence of the She was admitted yesterday with a fever RVR which was noted in her Apple Watch Did not have any significant symptoms with the Status post cardioversion this morning Has been doing much better following the Review of Systems Review of Systems: All systems reviewed and are unremarkable except as noted below Physical Exam Physical Exam: Lying in bed comfortably Constitutional: well developed, well nourished and + obese; not ill appearing Eyes: PERRL, conjunctivae normal, anicteric sclerae ENMT: external ear and nose normal, oropharynx normal Neck: trachea midline, no thyromegaly Respiratory: no respiratory distress Auscultation: lungs clear to auscultation bilaterally Cardiovascular: Rate/Rhythm: regular rate and regular rhythm; not tachycardic Heart Sounds: normal S1 and normal S2; no murmur Extremities: no edema Gastrointestinal (Abdomen): Inspection/Auscultation: normal bowel sounds; abdomen not distended Percussion/Palpation: abdomen soft; abdomen nontender Musculoskeletal: No acute arthritis involving any of the joint Neurologic: normal touch/pain/proprioception and moves all extremities; no focal motor deficits Psychiatric: A+Ox3, euthymic affect Lymphatic: no cervical or axillary lymphadenopathy Results & Data Results & Data Vital Signs (Past 12 Hours) Vital Signs Temp Pulse Pulse Resp BP BP Pulse Ox 10/06/23 12:34 72 10/06/23 11:35 60 20 109/71 100 10/06/23 11:05 36.4 C L 77 18 99/66 L 94 10/06/23 10:45 60 16 96/59 L 100 10/06/23 10:31 58 L 16 95/61 L 96 10/06/23 10:04 110 H 14 134/83 98 10/06/23 09:55 99 H 10/06/23 07:33 36.5 C 126 H 18 95/65 L 96 10/06/23 03:45 100/66 10/06/23 02:31 36.4 C L 103 H 15 86/55 L 94 O2 Del Method 10/06/23 12:34 10/06/23 11:35 Room Air 10/06/23 11:05 Room Air 10/06/23 10:45 Room Air 10/06/23 10:31 Room Air 10/06/23 10:04 Room Air 10/06/23 09:55 10/06/23 07:33 Room Air 10/06/23 03:45 10/06/23 02:31 Room Air Laboratory Results Short CBC 10/06/23 Range/Units 05:46 WBC 4.52 L (4.8-10.8) K/ul Hgb 13.3 (12.0-16.0) g/dl Hct 39.7 (37.0-47.0) % Plt Count 213 (130-400) K/uL BMP 10/05/23 10/06/23 11:26 05:46 Sodium 139 141 Potassium 3.6 4.2 Chloride 103 109 H Carbon Dioxide 31 28 BUN 9 14 Creatinine 0.66 0.67 Glucose 87 92 Calcium 9.0 8.7 Liver Function 10/05/23 Range/Units 11:26 Total Bilirubin 0.4 (0.2-1.0) mg/dl AST 17 (13-39) U/L ALT 13 (7-52) U/L Alkaline Phosphatase 97 (34-104) U/L Albumin 4.0 (3.4-5.0) gm/dl Medications Administered Current Inpatient Medications Acetaminophen (Acetaminophen 325 Mg Tab) 650 mg PO Q4H PRN PRN Reason: Pain or Fever Stop: 11/04/23 13:13 Cetirizine HCl (Cetirizine Hcl 10 Mg Tablet) 10 mg PO DAILY [facility] Stop: 11/05/23 08:59 Last Admin: 10/06/23 08:16 Dose: 10 mg Levothyroxine Sodium (Levothyroxine Sodium 88 Mcg Tablet) 88 mcg PO DAILYBB [facility] Stop: 11/05/23 06:29 Last Admin: 10/06/23 05:48 Dose: 88 mcg Metoprolol Succinate (Metoprolol Succ 25mg Ext Rel Tab) 25 mg PO QAM [facility] Stop: 11/05/23 10:44 Last Admin: 10/06/23 11:46 Dose: 25 mg Rivaroxaban (Rivaroxaban 20 Mg Tab) 20 mg PO DAILY@1700 [facility] Stop: 11/04/23 17:29 Last Admin: 10/05/23 18:05 Dose: 20 mg Trazodone HCl (Trazodone Hcl 50 Mg Tab) 50 mg PO HS [facility] Stop: 11/04/23 20:59 Last Admin: 10/05/23 22:23 Dose: 50 mg Vitamin D (Cholecalciferol 1,000 Units 25 Mcg Tab) 25 mcg PO DAILY [facility] Stop: 11/06/23 08:59
--- NOTE | 2023-10-06 13:14 | Communication Note ---
Date of Service: October 06, 2023 By CMS guidelines, a determination that the admission or continued stay is not medically necessary has been made by a member of the UR committee and clay [email or web address] for this hospital stay, therefore a Code 44 will be completed and the Inpatient admission will be changed to outpatient.
[2023-10-06 13:27] VITALS: BP 96/59; PULSE 60
[2023-10-07] MEDS ORDERED: CHOLECALCIFEROL 25 MCG (1000 UNITS) TAB PO SCH (09:00)
--- NOTE | 2023-10-07 13:01 | Discharge Summary ---
Date of Service October 06, 2023 Admission HPI Per Admitting Provider 72-year-old female with PMH paroxysmal atrial fibrillation s/p cardioversion and ablation, history of DVT anticoagulated on Xarelto, partial thyroidectomy and postsurgical hypothyroidism, and other problems listed below who presents to the ED for evaluation of atrial fibrillation. History is obtained from the patient. Patient recently moved to the area from [place]. She has not established with a PCP or cardiology. Patient reports an incidental finding of atrial fibrillation in 2018 as part of a preop workup for shoulder surgery. Patient states that she underwent cardioversion twice that was unsuccessful, ultimately leading to ablation in February 2020. In October 2020, patient underwent an additional ablation. Patient reports no known recurrences of atrial fibrillation since that time. This morning around 8 AM, patient reports that her Apple Watch alerted her that she was in atrial fibrillation. She then presented to the ED for further evaluation. Patient reports she was asymptomatic. She denies chest pain and palpitations. No shortness of breath, lightheadedness, dizziness, diaphoresis, syncopal events. Reports she otherwise has been feeling well recently. Denies any other recent illnesses, fevers, chills. No abdominal pain, nausea, vomiting, diarrhea. She denies urinary symptoms. Of note, patient is not currently on any rhythm or rate controlling medications for atrial fibrillation. In the ED, patient was found to be in atrial fibrillation with RVR with rates in the 130s. She received metoprolol 5 mg IV with improvement in heart rate. Labs are unremarkable. Principal Diagnosis A-fib with RVR, status post DC cardioversion Discharge Exam Lying in bed comfortably Constitutional well developed, well nourished and + obese; not ill appearing Eyes PERRL, conjunctivae normal, anicteric sclerae ENMT external ear and nose normal, oropharynx normal Neck trachea midline, no thyromegaly Respiratory no respiratory distress Auscultation: lungs clear to auscultation bilaterally Cardiovascular Rate/Rhythm: regular rate and regular rhythm; not tachycardic Heart Sounds: normal S1 and normal S2; no murmur Extremities: no edema Gastrointestinal (Abdomen) Inspection/Auscultation: normal bowel sounds; abdomen not distended Percussion/Palpation: abdomen soft; abdomen nontender Neurologic normal touch/pain/proprioception and moves all extremities; no focal motor deficits Psychiatric A+Ox3, euthymic affect Lymphatic no cervical or axillary lymphadenopathy Discharge Data Allergies Allergy/AdvReac Type Severity Reaction Status Date / Time acetaminophen [From Percocet] Allergy Unknown Verified 10/06/23 02:53 oxycodone [From Percocet] Allergy Unknown Verified 10/06/23 02:53 diltiazem [From Cardizem] AdvReac Hypotension Verified 10/06/23 02:53 Consultations 10/05/23 13:12 Consult Cardiology Routine Procedures Performed Operation Date: 10/06/23 10:00 Actual Procedures p Cardioversion - Gustavo Pepper DO Hospital Course (1) Atrial fibrillation with rapid ventricular response: Patient presenting from home for evaluation of atrial fibrillation. States that around 8 AM, her Apple Watch alerted her that she was in atrial fibrillation. She was asymptomatic. Patient reports an incidental finding of atrial fibrillation in 2018 as part of a preop workup for shoulder surgery. Patient states that she underwent cardioversion twice that was unsuccessful, ultimately leading to ablation in February 2020. In October 2020, patient underwent an additional ablation. Patient reports no known recurrences of atrial fibrillation since that time. In the ED, patient found to be in atrial fibrillation with rates in the 130s. She received metoprolol 5 mg IV with improvement in heart rate. Patient reports a intolerance to diltiazem, causing profound bradycardia in the past. Currently not on any rhythm or rate controlling medications. No signs of infection, electrolytes acceptable, TSH pending Start metoprolol tartrate 12.5 mg q6h, continue home Xarelto Echo echo of the heart showedmild concentric LVH, EF 55 to 60%, LV wall motion is normal, left atrium is mildly dilated, there is mild MR and mild TR and Doppler findings do not suggest pulmonary hypertension Appreciate cardiology input and recommendation Status post cardioversion with reversion to sinus rhythm Started on beta-anant and will be continued as advised She will be discharged home this afternoon (2) History of DVT (deep vein thrombosis): Continue Xarelto (3) Postsurgical hypothyroidism: Continue home dose levothyroxine Check TSH DVT PROPHYLAXIS On Xarelto . Total Time Total Time Spent Total Time Spent (In Minutes): 35 minutes Discharge Plan Discharge Items Patient Disposition: Home - Self-Care Reason For Visit: AFIB RVR Discharge Diagnosis: A-fib with RVR, status post DC cardioversion Condition on Discharge: Good Activity: Resume your previous activity Non-emergency contact: Primary Care Provider Call non-emergency contact if: you have any medication questions and your symptoms worsen Follow-up/Referrals: Shamar Washburn DO [Technical Services Representative] - (Date & Time 10/14/2023 2:00 PM Provider Shamar Washburn DO Department Cardiology, [facility] ) Phil Keller MD [Outside Practitioners] - (Date & Time 10/14/2023 3:20 PM Provider Phil Keller MD Department Family Practice [facility] ) Diet: Heart Healthy Addtl Attending Provider Instructions: Please take precautions to avoid fall Take your medications as advised Take the new beta-anant regularly Please keep appointments with the healthcare providers Pending Studies at Discharge: No Stand-Alone Forms: My [facility] [employer], Smoking Cessation Medications and DC Order Prescriptions: New metoprolol succinate 25 mg Tablet Extended Release 24 Hr 25 mg PO QAM Qty: 30 0RF Continued levothyroxine 88 mcg tablet 88 mcg PO DAILY cholecalciferol (vitamin D3) 25 mcg (1,000 unit) Capsule 25 mcg PO DAILY Krill Oil (Isabel 3 and 6) 1000-130(40-80) mg Capsule 1 cap PO DAILY Zyrtec 10 mg Capsule 10 mg PO DAILY PreserVision AREDS 2,148 mcg-113 mg-45 mg-17.4mg Tablet 1 tab PO DAILY Xarelto 20 mg tablet 20 mg PO DAILY Glucosamine Chondroitin 550-30-1 mg Capsule 1 cap PO DAILY Biactiv 3 tabs PO DAILY trazodone 50 mg tablet 50 mg PO HS Discharge Orders: Discharge Order (Routine); Ordered 10/06/23 Ordered By: Cesar Saavedra Admission Data Admit Date/Time: 10/05/23 12:36 Attending Provider: Cesar Saavedra Admit Provider: Felton Arteaga Primary Care Provider: PCP,NO Other Providers: Gustavo Pepper; Felton Arteaga Other Interventions: Discharge Summary Assessment (RN) Last Done: 10/06/23 13:26
== END 2023-10-06 14:20 | disposition home or self-care (01) ==
LOC: ED 11:08 → SUATTDRO 12:36 → INTOOBSV 12:36 → EDINP 12:36 → 4W 13:14